=== PATIENT | female | born 1970 | race Asian ===

== ENCOUNTER → 2024-04-29 17:37 | Outpatient (REF) | payer OTHER, SELFPAY | LOC: WDC 17:37 | PROVIDERS: ATTENDING PHYSICIAN Physician Assistant | DX: Z12.31 Encounter for screening mammogram for malignant neoplasm of breast (principal) | CPT/HCPCS: 73080; 77063; 77067 ==

== ENCOUNTER 2024-07-04 06:22 | Day surgery (SDC) | payer OTHER, SELFPAY | END 2024-07-04 09:38 | disposition home or self-care (01) | LOC: GI 06:22 | PROVIDERS: ATTENDING PHYSICIAN Internal Medicine | DX: Z12.11 Encounter for screening for malignant neoplasm of colon (principal); K64.8 Other hemorrhoids; D12.0 Benign neoplasm of cecum | CPT/HCPCS: 45385; 88305 ==